=== PATIENT | male | born 1985 | race Caucasian/White ===

== ENCOUNTER → 2021-01-29 | Outpatient (CLI) | payer OTHER ==
[~2021-01-29] MED LIST: DOXYCYCLINE HY100 MG PO; TESSALON PERLE100 MG PO
== END ==
LOC: EXRD 07:45
DX: R10.11 Right upper quadrant pain (principal); K76.0 Fatty (change of) liver, not elsewhere classified
CPT/HCPCS: 76705

== ENCOUNTER → 2021-03-08 | Outpatient (CLI) | payer OTHER | LOC: CT 14:46 | DX: R10.31 Right lower quadrant pain (principal) | CPT/HCPCS: 74160; Q9967 ==

== ENCOUNTER → 2021-04-04 | Outpatient (CLI) | payer OTHER ==
[2021-04-05 09:14] LABS: CORTISOL 1.1 ug/dL (.)
[2021-04-09 01:10] LABS: METANEPHRINE, PL 10.4 pg/mL (0.0-88.0)
== END ==
LOC: LAB 08:26
PROVIDERS: Physician Assistant Surgical
DX: D49.7 Neoplasm of unspecified behavior of endocrine glands and other parts of nervous system (principal)
CPT/HCPCS: 36415; 82088; 82533; 83835; 84244; G0480